=== PATIENT | female | born 1975 | race Caucasian/White ===

== ENCOUNTER → 2020-09-29 14:46 | Outpatient (CLI) | payer MEDICARE ==
[2020-09-29 15:12] LABS: BASOPHILS 0.8 % (0-2); EOSINOPHILS 1.6 % (0-7); HEMATOCRIT 38.8 % (36.0-48.0); LYMPHOCYTES 20.3 % (15-50); MCH 31.2 pg (26.0-34.0); MCHC 33.5 g/dL (31.0-37.0); MCV 93.3 fL (80.0-100.0); MEAN PLATELET VOLUME 7.2 fL (7.4-10.4); MONOCYTES 8.5 % (2-11); NEUTROPHILS 68.8 % (40-80); RBC 4.16 10x6/uL (4.00-5.40); RDW 13.3 % (11.5-14.5); WBC 11.4 10x3/uL (4.8-10.8)
[2020-09-29 15:22] LABS: PLATELET COUNT 241 10x3/uL (130-400)
== END | disposition home or self-care (01) ==
LOC: D.LAB 14:46
PROVIDERS: ATTEND Internal Medicine Gastroenterology
DX: R19.5 Other fecal abnormalities (principal); R10.13 Epigastric pain